=== PATIENT | male | born 1995 | race Two or more races ===

== ENCOUNTER 2023-02-08 11:02 | Emergency (ER) | payer OTHER ==
[~2023-02-08] VITALS: Ht 167.6 cm; Wt 76.7 kg
--- NOTE | 2023-02-08 11:26 | NUR ---
IV ACCESS 18G LEFT AC. BLOOD DRAWN AND SENT TO LAB.
--- NOTE | 2023-02-08 11:28 | NUR ---
URINE SAMPLE COLLECTED AND SENT TO LAB. CALLED FOR MACHINE BOSS.
[2023-02-08] MEDS ORDERED: FAMOTIDINE/PF INJ 20 MG/2 ML VIAL IV ONE ×2 (11:30→11:33)
[2023-02-08 11:34] LABS: BASOPHILS % (AUTO) 0.2 % (0.0-2.0); EOSINOPHILS % (AUTO) 1.7 % (0.0-6.0); HEMATOCRIT 42 % (39-51); HEMOGLOBIN 14.3 g/dL (13.5-17.5); LYMPHOCYTES # (AUTO) 1.4 K/uL (0.8-4.8); LYMPHOCYTES % (AUTO) 19.3 % (20.0-44.0); MEAN CORPUSCULAR HGB CONC 34 g/dl (31.0-36.0); MEAN CORPUSCULAR VOLUME 90 fL (80-96); MONOCYTES # (AUTO) 0.4 K/uL (0.1-1.30); MONOCYTES % (AUTO) 5.8 % (2.0-12.0); NEUTROPHILS # (AUTO) 5.1 K/uL (1.8-8.9); PLATELET COUNT (AUTO) 341 K/uL (150-450); RED BLOOD CELL COUNT(AUTO) 4.68 MIL/uL (4.5-6.0)
--- NOTE | 2023-02-08 11:41 | NUR ---
PT ON BED CC LT UPPER QUADRANT PAIN IN MOVEMENT. NO RADIATION. 03/28. NO VOMITING NOR NAUSEA. NO MEDS
--- NOTE | 2023-02-08 11:53 | NUR ---
PT ON BED PUT 0N MONITOR AND PULSE.
[2023-02-08 11:57] LABS: BILIRUBIN,URINE NEGATIVE (NEGATIVE); COLOR,URINE YELLOW (YELLOW); LEUKOCYTE ESTERASE ,URINE NEGATIVE (NEGATIVE); NITRITE, URINE NEGATIVE (NEGATIVE); PH,URINE 8.5 (5.0-8.0); PROTEIN,URINE 2+ mg/dl (NEGATIVE); UGLUCOSE NEGATIVE (NEGATIVE)
[2023-02-08 12:00] LABS: CALCIUM, SERUM 8.7 mg/dL (8.5-10.1); CREATININE 1.1 mg/dL (0.6-1.3)
[2023-02-08 12:10] LABS: BILIRUBIN,DIRECT 0.1 mg/dL (0.0-0.2); BILIRUBIN,TOTAL 0.5 mg/dL (0.2-1.0); TOTAL PROTEIN, SERUM 7.4 g/dL (6.4-8.2)
[2023-02-08 12:19] LABS: BACTERIA,URINE Rare /HPF (None Seen); SQUAMOUS EPITHELIAL CELL,UR Few /HPF (None Seen)
--- NOTE | 2023-02-08 12:50 | NUR ---
PT OUT TO CT VIA [facility]
[2023-02-08] MEDS ORDERED: ONDANSETRON HCL/PF 4 MG/2 ML VIAL ONE (12:54)
[2023-02-08] MEDS ORDERED: KETOROLAC TROMETHAMINE INJ 30 MG/ML VIAL ONE (12:54)
[2023-02-08] MEDS ORDERED: ONDANSETRON HCL/PF - ER 4 MG/2 ML VIAL IV ONE (13:00)
[2023-02-08] MEDS ORDERED: KETOROLAC TROMETHAMINE INJ 30 MG/ML VIAL IV ONE (13:00)
[2023-02-08] MEDS ORDERED: IBUP-1953 PO (14:13)
[2023-02-08] MEDS ORDERED: FAMO20TA8 PO (14:13)
[2023-02-08] MEDS ORDERED: ONDA4TAB5 PO (14:13)
[2023-02-08] MEDS ORDERED: MAG355OR18 PO (14:13)
[2023-02-08 14:35] VITALS: BP 121/70
== END 2023-02-08 14:36 | disposition home or self-care (01) ==
LOC: ER 11:14
DX: K52.9 Noninfective gastroenteritis and colitis, unspecified (principal); R10.12 Left upper quadrant pain; R11.0 Nausea; Z79.899 Other long term (current) drug therapy
CPT/HCPCS: 99285; 74176; 96374; 96375; 85025; 80048; 83690; 80076; 81001; 36415; J3490; J1885; J2405 ×2